=== PATIENT | female | born 1945 | race Caucasian/White ===

== ENCOUNTER → 2018-02-17 14:12 | Outpatient (CLI) | payer MEDICARE, OTHER, SELFPAY ==
[2018-02-17 17:25] LABS: HIV 1 and 2 Antibody NEGATIVE (NEGATIVE); Hep C Virus Ab w/Reflex Quant NEGATIVE s/c (NEGATIVE)
[2018-02-17 18:18] LABS: Urine N gonorrhoeae NOT DETECTED
[2018-02-17 18:58] LABS: Urine Chlamydia NOT DETECTED
[2018-02-19 13:45] LABS: Hepatitis B Core Antibody Nonreactive (Nonreactive)
[2018-02-19 14:39] LABS: HSV 2 IGG AB < 0.90 index (< 0.90)
[2018-02-19 15:09] LABS: RPR Screen Nonreactive (Nonreactive)
[2018-02-21 13:30] LABS: HSV 1 IgM Screen Negative (Negative); HSV 2 IgM Screen Negative (Negative)
== END ==
PROVIDERS: Visit Provider Obstetrics & Gynecology
DX: Z20.828 Contact with and (suspected) exposure to other viral communicable diseases (principal)
CPT/HCPCS: 36415; 86592; 86694; 86695; 86696; 86703; 86704; 86803; 87491; 87591

== ENCOUNTER → 2018-09-10 13:52 | Outpatient (CLI) | payer MEDICARE, OTHER, SELFPAY ==
--- NOTE | 2018-09-10 | DI.MRI.S_ITS ---
PROCEDURE: MR LUMBAR SPINE WO CON INDICATIONS: Other intervertebral disc degeneration, lumbar reg TECHNIQUE: Noncontrast sagittal T1 spin echo and T2 fast echo, sagittal STIR, axial T1 and T2 fast spin echo through the lumbar spine. In cases with scoliosis, additional coronal T2 fast spin echo may be performed. COMPARISON: [facility] [place], CR, XR LUMBAR SPINE WITH OLBIQUES PLUS FLEXION EXTENSION, 09/05/2018, 14:23. FINDINGS: Image quality: Excellent. Alignment and Curvature: There is trace L4-L5 anterolisthesis. Bone Marrow: Marrow is of normal overall signal. No acute vertebral body compression fractures. Spinal Cord: Conus medullaris terminates at the L1 to level. Visualized cord demonstrates normal signal and size. Paraspinous Soft Tissues: No paravertebral masses. L1-L2: Loss of disc signal. Minimal, diffuse disc bulge. No central stenosis. No neural foraminal narrowing. No neural impingement. L2-L3: Slight loss of disc signal. No central stenosis. No neural foraminal narrowing. No neural impingement. Mild bilateral facet hypertrophy. L3-L4: Loss of disc signal. Minimal, diffuse disc bulge. Moderate bilateral facet hypertrophy. Mild narrowing of the central canal. No neural foraminal narrowing. No neural impingement. L4-L5: Loss of disc signal. Minimal, diffuse disc bulge and moderate to severe facet hypertrophy. Mild ligamentum flavum hypertrophy. Mild to moderate narrowing of the central canal. Mild bilateral neural foraminal narrowing. No neural impingement. L5-S1: Loss of disc signal. Moderate bilateral facet hypertrophy. No central stenosis. No neural foraminal narrowing. No neural impingement. Bilateral S1 and S2 Tarlov cysts. IMPRESSION: 1. Grade I L4-L5 degenerative spondylolisthesis. 2. Multilevel degenerative disc disease. 3. Multilevel facet arthropathy. 4. Mild to moderate L4-L5 central canal narrowing. Mild L3-L4 central canal narrowing. 5. Mild bilateral L4-L5 neural foraminal narrowing. 6. No neural impingement. Dictated by: Neida Sandoval MD, PhD on 09/12/2018 at 11:09 Approved by: Neida Sandoval MD, PhD on 09/12/2018 at 11:13
== END ==
PROVIDERS: Family Provider Otolaryngology; PCP Family Medicine; Visit Provider Physical Medicine & Rehabilitation Pain Medicine
DX: M51.36 Other intervertebral disc degeneration, lumbar region (principal); M47.816 Spondylosis without myelopathy or radiculopathy, lumbar region; M47.817 Spondylosis without myelopathy or radiculopathy, lumbosacral region; M48.061 Spinal stenosis, lumbar region without neurogenic claudication; M43.16 Spondylolisthesis, lumbar region
CPT/HCPCS: 72148

== ENCOUNTER → 2019-01-02 15:22 | Outpatient (CLI) | payer MEDICARE, OTHER, SELFPAY ==
--- NOTE | 2019-01-02 | DI.RAD.S_ITS ---
PROCEDURE: XR CERVICAL SPINE MIN 6V INDICATIONS: NECK PAIN TECHNIQUE: 7 views of the cervical spine were acquired. COMPARISON: [facility], CR, SPINE THORACIC 2VW, 03/30/2013, 13:22. FINDINGS: Bones: No fractures or dislocations to the T1 level. No suspicious bony lesions. There is limited range of motion between flexion and extension, with preserved normal bony alignment. Severe multilevel disc degeneration, most notably at the C4-C5, C5-C6 and C6-C7 levels. Moderate multilevel mid and lower cervical spine facet joint arthropathy. Moderate multilevel mid and lower cervical spine bilateral facet joint arthropathy. Soft tissues: Prevertebral soft tissues are normal in thickness. There is rightward deviation of the trachea noted on the frontal view IMPRESSION: 1. Limited range of motion multilevel degenerative change. 2. Rightward deviation of the trachea seen on the frontal view which appears similar to prior thoracic spine series dated 03/30/13. When clinically feasible recommend 2 view chest radiograph for further assessment. Dictated by: Shankar SAMS Interpreted: Deja Galvez MD on 01/02/2019 at 17:06 Approved by: Deja Galvez M.D. on 01/02/2019 at 17:50
== END ==
PROVIDERS: PCP Family Medicine; Visit Provider Anesthesiology Pain Medicine
DX: M50.321 Other cervical disc degeneration at C4-C5 level (principal); M47.812 Spondylosis without myelopathy or radiculopathy, cervical region
CPT/HCPCS: 72052

== ENCOUNTER → 2019-01-30 15:35 | Outpatient (CLI) | payer MEDICARE, OTHER, SELFPAY ==
--- NOTE | 2019-01-30 | DI.RAD.S_ITS ---
PROCEDURE: XR THORACIC SPINE 2V INDICATIONS: TRACHEAL DEVIATION TECHNIQUE: 3 views of the thoracic spine were acquired. COMPARISON: [facility], CR, XR CERVICAL SPINE MIN 6V, 01/02/2019, 15:26. [facility], MR, C-SPINE WITHOUT CONTRAST, 11/25/2009, 12:17. [facility], CR, SPINE THORACIC 2VW, 03/30/2013, 13:22. [facility], MR, MR THORACIC SPINE WITHOUT CONTRAST, 02/28/2015, 13:24. [facility], CR, RIBS UNILATERAL WITH PA CXR, 06/24/2015, 16:51. FINDINGS: Bones: No fractures or dislocations. No suspicious bony lesions. 12 pairs of ribs are noted, and appear intact where visualized. Degenerative disc disease and facet osteoarthritis along the thoracic spine is little if any change from prior studies, and moderately severe low cervical degenerative disc disease is partially visualized. This has been previously documented. There is prominent associated kyphosis. Soft tissues: No paravertebral stripe thickening. IMPRESSION: The tracheal deviation seen on cervical spine plain film imaging 01/02/19 likely is secondary to the prominent kyphosis of the patient but may be secondary to some additional factor more anteriorly. The thoracic spine imaging visualizes the posterior structures well away from the anterior position in trachea. CT scanning may be warranted if a mass within the upper mediastinum is clinically suspected. Dictated by: Rakan Pritchett M.D. on 01/30/2019 at 16:23 Approved by: Rakan Pritchett M.D. on 01/30/2019 at 16:26
== END ==
PROVIDERS: Family Provider Otolaryngology; PCP Family Medicine; Referring Provider Physical Medicine & Rehabilitation Pain Medicine; Visit Provider Anesthesiology Pain Medicine
DX: J39.8 Other specified diseases of upper respiratory tract (principal); M51.34 Other intervertebral disc degeneration, thoracic region; M47.814 Spondylosis without myelopathy or radiculopathy, thoracic region; M50.30 Other cervical disc degeneration, unspecified cervical region; M40.209 Unspecified kyphosis, site unspecified
CPT/HCPCS: 72070

== ENCOUNTER → 2019-04-13 10:02 | Outpatient (CLI) | payer MEDICARE, OTHER, SELFPAY ==
--- NOTE | 2019-04-13 | DI.MRI.S_ITS ---
PROCEDURE: MR CERVICAL SPINE WO CON INDICATIONS: Cervicalgia TECHNIQUE: Noncontrast sagittal T1 spin echo and T2 fast spin echo, sagittal STIR, foraminal oblique sagittal T2 fast spin echo, and axial gradient echo or T2 fast spin echo through the cervical spine. COMPARISON: [facility], MR, C-SPINE WITHOUT CONTRAST, 11/25/2009, 12:17. FINDINGS: Image quality: Excellent. Alignment and Curvature: Straightening of the normal lordotic curvature. Grade 1 anterolisthesis of C4 on C5. Multilevel degenerative endplate sclerosis and spurring. Diffuse facet arthropathy. No fracture notified. Spinal Cord: Visualized spinal cord has normal size and signal. No cerebellar tonsillar herniation. Paraspinous Soft Tissues: No paravertebral masses. Prevertebral soft tissues are normal in thickness. C2-C3: No central canal narrowing. Mild bilateral foraminal stenoses, possibly slightly progressed on the left since prior study on axial images only. C3-C4: No central canal narrowing. Moderate bilateral foraminal stenoses with nerve root compression, no definite change on axial images only C4-C5: Mild central canal narrowing. Asymmetric facet arthropathy, left greater than right. Severe bilateral foraminal stenosis, left greater than right with nerve root compression on both sides. C5-C6: Mild center canal narrowing. Severe bilateral foraminal stenoses with nerve root compression. Overall, no definite interval change on axial images only. C6-C7: Mild central canal narrowing. Severe right foraminal stenosis. Moderate to severe left foraminal stenosis. No definite interval change on axial images only. C7-T1: No high-grade central canal stenosis. Mild-moderate bilateral foraminal stenoses, no definite interval change on axial images only.. IMPRESSION: Cervical spondylosis with multilevel mild central canal narrowing Numerous bilateral foraminal stenoses as detailed above. Limited comparison to prior study given differences in exam protocol. Dictated by: Panda Amaya M.D. on 04/13/2019 at 15:04 Approved by: Panda Amaya M.D. on 04/13/2019 at 15:47
--- NOTE | 2019-04-13 | DI.MRI.S_ITS ---
PROCEDURE: MR THORACIC SPINE WO CON INDICATIONS: Cervicalgia TECHNIQUE: Noncontrast sagittal T1 spine echo and T2 fast spin echo, sagittal STIR, axial T1 and T2 fast spin echo through the thoracic spine. COMPARISON: None. FINDINGS: Image quality: Excellent. Alignment and Curvature: There is mildly increased thoracic kyphosis Bone Marrow: Scattered Schmorl's nodes are present without definite adjacent marrow edema suggesting chronic age. Multilevel endplate degenerative signal changes. No acute vertebral body compression fractures. Spinal Cord: Visualized spinal cord is normal in size and signal. Paraspinous Soft Tissues: No paravertebral masses. Enlargement of the descending thoracic aorta measuring 3.6 x 3.7 cm. Miscellaneous: On axial images, central canal and foramina appear widely patent at all scanned levels. IMPRESSION: Increased thoracic kyphosis. No fracture identified. No definite canal or foraminal stenosis Scattered chronic appearing multilevel Schmorl's nodes. Diffuse mild spondylosis Aneurysmal ectasia of the descending thoracic aorta. This could be better characterized with with dedicated CT chest. Dictated by: Panda Amaya M.D. on 04/13/2019 at 15:47 Approved by: Panda Amaya M.D. on 04/13/2019 at 15:53
== END ==
PROVIDERS: Family Provider Otolaryngology; PCP Family Medicine; Referring Provider Acupuncturist; Visit Provider Acupuncturist
DX: M54.2 Cervicalgia (principal); M47.812 Spondylosis without myelopathy or radiculopathy, cervical region; M48.02 Spinal stenosis, cervical region
CPT/HCPCS: 72141; 72146

== ENCOUNTER → 2020-05-29 15:44 | Outpatient (CLI) | payer MEDICARE, OTHER, SELFPAY ==
--- NOTE | 2020-05-29 15:46 | DI.RAD.S_ITS ---
PROCEDURE: XR CERVICAL SPINE 4V OR 5V INDICATIONS: cervical radiculopathy TECHNIQUE: 5 views of the cervical spine acquired. COMPARISON: [facility], CR, XR CERVICAL SPINE MIN 6V, 01/02/2019, 15:26. FINDINGS: Bones: No fractures or dislocations to the T1 level. Oblique images demonstrate no bony foraminal stenoses. Degenerative disc disease is mild at C2-3 and C3-4 and moderate at C4-5 where anterolisthesis grade 1 is present. At C5-6 and C6-7 the degenerative disc disease is moderately severe. Oblique view show midcervical spine osteophyte formation mildly improved narrowing the neural foramen. Soft tissues: No prevertebral soft tissue swelling. IMPRESSION: No definite worsening of the degenerative disc disease and facet osteoarthritis along the cervical spine with reference to the comparison study. No trauma found. Stable finding of mild grade 1 anterolisthesis of C4 on C5 presumably related to ligamentous laxity previously present. Dictated by: Rakan Pritchett M.D. on 05/30/2020 at 8:09 Approved by: Rakan Pritchett M.D. on 05/30/2020 at 8:12
== END ==
PROVIDERS: Family Provider Otolaryngology; PCP Family Medicine; Referring Provider Physical Medicine & Rehabilitation; Visit Provider Physical Medicine & Rehabilitation
DX: M47.22 Other spondylosis with radiculopathy, cervical region (principal); M50.11 Cervical disc disorder with radiculopathy, high cervical region; M43.12 Spondylolisthesis, cervical region
CPT/HCPCS: 72050

== ENCOUNTER → 2020-10-28 08:31 | Outpatient (CLI) | payer MEDICARE, OTHER, SELFPAY ==
[2020-10-28 14:15] LABS: COVID19 -Nasal RAPID Negative (Negative)
== END ==
PROVIDERS: Family Provider Otolaryngology; PCP Family Medicine; Visit Provider Physical Medicine & Rehabilitation
DX: Z20.822 Contact with and (suspected) exposure to COVID-19 (principal)
CPT/HCPCS: 87635; C9803

== ENCOUNTER 2020-10-29 13:41 | Outpatient (CLI) | payer MEDICARE, OTHER, SELFPAY ==
[2020-10-29] VITALS (8 sets, daily range): BP systolic 136–165; BP diastolic 78–87; PULSE 76–83; RESP 12–20; TEMP 37.1; O2SAT 97–99
--- NOTE | 2020-10-29 13:42 | DI.RAD.S_ITS ---
PROCEDURE: PAIN L/SI FACET INJ/BLK 1STL INDICATIONS: SPONDYLOSIS COMPARISON: None. FINDINGS: Fluoroscopic spot filming was performed to verify placement of spinal needles at the L4-5 and L5-S1 level(s), as labeled on the films. Appropriate location(s) of the needle tip(s) was confirmed by injection of iodinated contrast. IMPRESSION: Fluoro guidance was provided intraoperatively for right L4-5 and L5-S1 facet joint injection. Dictated by: Александр Amador M.D. on 10/29/2020 at 17:03 Approved by: Александр Amador M.D. on 10/29/2020 at 17:05
[2020-10-29] MEDS: MIDAZOLAM 5 MG/5 ML VIAL IV (14:56)
[2020-10-29] MEDS: BUPIVACAINE 0.5% (PF) VIAL 2 ML INJ (15:13)
[2020-10-29] MEDS: IOPAMIDOL 15 ML VIAL 3 ML INJ (15:13)
[2020-10-29] MEDS: BETAMETHASONE 30 MG/5 ML MDV 6 MG INJ (15:13)
--- NOTE | 2020-10-29 15:14 | P.PCN_ITS ---
Date/Time/Diagnoses Date of procedure: 10/29/20 Time of procedure: 15:14 Pre-procedure diagnosis: 1. FACET ARTHROPATHY, 2. AXIAL LBP, 3. MULTILEVEL DDD Post-procedure diagnosis: same Procedure Notes Procedure: 1. FLUOROSCOPICALLY GUIDED CONTRAST CONTROLLED FACET JOINT INJECTIONS RIGHT L4/5, L5/S1 Indications: Joselin is referred by Dr. Laurent for treatment of Axial LBP Physician: Joce Roman Total Fluoroscopy time (seconds): 4 Total sedation minutes: 10 Complications: none Procedure in detail & Post-procedure care: FINDINGS Multilevel Facet Arthropathy with Clinically significant axial LBP DESCRIPTION OF PROCEDURE Fluoroscopically guided, contrast-controlled right L4/5, L5/S1 facet joint injections. Following review of allergy and review of potential side effects and complications, including, but not necessarily limited to, infection, allergic reaction, local tissue breakdown, stroke, temporary or permanent nerve injury, paralysis, and possible , the patient indicated that the patient understood and agreed to proceed. An informed consent document was signed by the patient, witnessed by a nurse, and placed in the patient's chart. Additionally, other treatment options including medications, modalities, and physical therapy were reviewed with the patient. After review of previous anaesthesic history and IV conscious sedation the patient was deemed safe to proceed with today?s procedure with IV conscious sedation as ASA class II designation. Safety time-out was performed to confirm patient ID, procedure to be performed and site of procedure. IV sedation was accomplished with a combination of 2mg of Versed was administered by the RN after DO order, titrated to patient comfort during the course of the procedure while the patient remained responsive to all verbal commands. In the prone position, following sterile prep and drape of the lumbar region, the posterior aspect of the right L4/5, L5/S1 facet joints were identified fluoroscopically. The skin was anesthetized via a 25-gauge 1.5-inch needle with 1% lidocaine solution into the corresponding facet joints. At this point, a 22- gauge 3.5-inch spinal needle was atraumatically introduced and advanced under fluoroscopic guidance into the corresponding facet joints. Following negative aspiration, injections of approximately 0.2-cc of Isovue 200 confirmed interarticular placement without vascular uptake. Radiological data, including multiple fluoroscopic views of the lumbosacral spine, reveal a spinal needle at the right L4/5, L5/S1 facet joints. Subsequent views show flow of contrast material both superiorly and inferiorly within the joint space without vascular or intrathecal uptake. At this point, a total of 0.5cc including a mixture of 0.25cc Marcaine and 0. 25cc betamethasone was injected without complication into each of the corresponding facet joints. The procedure tolerated the procedure well without signs or symptoms of complications prior to transfer to the recovery area continued monitoring without incident. The patient was then transferred to the recovery area where they were observed for an appropriate period of time after the injection. The patient reported a VAS score of 7 prior to the procedure and a post-procedure VAS of 0. POST OP INSTRUCTIONS The patient was provided a Pain Log to continue to record their response to the target-specific procedure prior to follow-up visit with their referring physician. Additionally, specific post-injection care instructions and a contact number to our office were provided if concerns arise regarding possible complications associated with the procedure are suspected.
== END 2020-10-29 15:37 | disposition home or self-care (01) ==
PROVIDERS: Family Provider Otolaryngology; PCP Family Medicine; Referring Provider Physical Medicine & Rehabilitation; Visit Provider Physical Medicine & Rehabilitation
DX: M47.816 Spondylosis without myelopathy or radiculopathy, lumbar region (principal); M47.817 Spondylosis without myelopathy or radiculopathy, lumbosacral region; M51.36 Other intervertebral disc degeneration, lumbar region; M51.37 Other intervertebral disc degeneration, lumbosacral region; M54.5 Low back pain
CPT/HCPCS: 64493; 64494; 99152; J0702; J1100; J2250; J3010

== ENCOUNTER → 2021-09-18 11:55 | Outpatient (CLI) | payer MEDICARE, OTHER, SELFPAY ==
--- NOTE | 2021-09-18 | DI.ECHO.S_ITS ---
[facility]---------+ [facility] +---------+ : : [address] : [place] : : : : [id number] : : : : Phone: [phone] Echocardiogram Report + + :Name: XI ARAYA Study Date: 09/18/2021 Height: 67 in : :[facility] ReadingLocation: Weight: 200 lb : : Gender: Female BSA: 2.0 m2 : :: 1945 Age: 75 yrs BP: 177/106 mmHg: :Reason For Study: Dyspnea : :Ordering Physician: MARTY, : :SOTO Performed By: Danny Coello : :Referring: SOTO CARREON : + + Interpretation Summary 1) Normal left ventricular size with moderately to severely reduced systolic function (EF 30-35%). 2) Normal right ventricular size and function. 3) No significant valvular abnormalities. 4) Significant hypertension present during the study (BP 177/106mmHg). 5) No prior Echo available for comparison. Procedure: A two-dimensional transthoracic echocardiogram with color flow and Doppler was performed. The study quality was technically difficult. There is no prior echocardiogram noted for this patient. Left Ventricle: The left ventricle is normal in size. There is mild concentric left ventricular hypertrophy. Left ventricular systolic function is moderately reduced. The ejection fraction is estimated to be 30-35%. There is moderate to severe global hypokinesis of the left ventricle. Diastolic parameters suggest a relaxation abnormality of the left ventricle, consistent with probable normal filling pressures. Right Ventricle: The right ventricle is normal in size and function. Atria: Both atria are normal in size. The interatrial septum grossly appears intact with no obvious evidence for an atrial septal defect. Mitral Valve: There is mild mitral annular calcification. There is trace mitral regurgitation. Aortic Valve: The aortic valve is normal in structure and function. There is no aortic valve stenosis. There is mild aortic regurgitation. Tricuspid Valve: The tricuspid valve is normal in structure and function. No tricuspid regurgitation. Pulmonary artery pressures cannot be estimated because of the lack of a measurable TR jet velocity. Pulmonic Valve: The pulmonic valve is not well visualized. Great Vessels: The aortic root is not well visualized but is probably normal size. The ascending aorta could not be visualized. The IVC is dilated (diameter is greater than 2.1 cm) yet it collapses greater than 50% with a sniff. This suggests a right atrial pressure of 8 mm Hg. Pericardium/ Pleura There is no pericardial effusion. There is no pleural effusion. MMode/2D Measurements & Calculations LVIDd: 4.4 cm LVOT diam: 2.0 cm LVIDs: 3.7 cm FS: 15.9 % IVSd: 1.2 cm LVPWd: 1.3 cm LV giraldo. diameter/BSA (cm/m^2): 2.2 LV sys. diameter/BSA (cm/m^2): 1.8 LA dimension: 3.6 cm RA long axis: 4.8 cm LA A2 area: 20.1 cm2 IVC diam: 2.3 cm LA A4 area: 20.9 cm2 LA length (vol): 5.7 cm LA vol: 62.9 ml LA vol index: 31.1 ml/m2 LVLs ap4: 7.6 cm LVLd ap2: 8.4 cm LVLs ap2: 7.5 cm TAPSE_phl: 1.8 cm Doppler Measurements & Calculations Ao V2 max: 119.0 cm/sec LVOT Max Kedar: 79.0 cm/sec Ao V2 mean: 81.6 cm/sec LV V1 max P.5 mmHg Ao max P.0 mmHg LV V1 VTI: 17.4 cm Ao mean P.0 mmHg SOLA(I,D): 2.4 cm2 Ao V2 VTI: 22.6 cm SOLA(V,D): 2.1 cm2 sev ratio: 0.77 SOLA indexed to BSA (cm^2/m^2): 1.2 MV E max kedar: 42.4 cm/sec SV(LVOT): 54.7 ml MV A max kedar: 90.0 cm/sec MV E/A: 0.47 Med Peak E' Kedar: 2.9 cm/sec E/E' med: 14.6 Lat Peak E' Kedar: 3.3 cm/sec E/E' lat: 12.9 E/e' average: 13.8 MV dec time: 0.47 sec AV VR_phl: 0.66 MV P1/2t-pr_phl: 139.0 msec SOLA(VTI)/BSA_phl: 1.2 Reading Physician:02:10 PM
== END ==
PROVIDERS: Family Provider Otolaryngology; PCP Family Medicine; Referring Provider Internal Medicine Cardiovascular Disease; Visit Provider Internal Medicine Cardiovascular Disease
DX: R06.00 Dyspnea, unspecified (principal); I35.1 Nonrheumatic aortic (valve) insufficiency
CPT/HCPCS: 93306

== ENCOUNTER → 2021-11-04 14:33 | Outpatient (CLI) | payer MEDICARE, OTHER, SELFPAY ==
[2021-11-04 16:58] LABS: BUN Creatinine Ratio 17.6 (6-22); Blood Urea Nitrogen 16 mg/dL (7-17); Calcium 8.9 mg/dL (8.4-10.2); Carbon Dioxide 31 mmol/L (22-32); Chloride 100 mmol/L (98-107); Estimated Glomerular Filt Rate > 60 mL/min (>60); Glucose 90 mg/dL (80-110); HEMOLYSIS < 15 (0-50); Potassium 3.8 mmol/L (3.4-5.1); Sodium 138 mmol/L (137-145)
== END ==
PROVIDERS: Family Provider Otolaryngology; PCP Physician Assistant; Referring Provider Internal Medicine Cardiovascular Disease; Visit Provider Internal Medicine Cardiovascular Disease
DX: I10 Essential (primary) hypertension (principal)
CPT/HCPCS: 36415; 80048

== ENCOUNTER → 2022-03-25 14:37 | Outpatient (CLI) | payer MEDICARE, OTHER, SELFPAY ==
[2022-03-25 15:34] LABS: Add Manual Diff / Slide Review NO; Basophils Absolute Auto 0 /uL (0-100); Basophils Percent Auto 0.6 % (0-2); Eosinophils Absolute Auto 100 /uL (0-450); Eosinophils Percent Auto 1.8 % (2-4); Hematocrit 39.8 % (36-46); Hemoglobin 13.6 g/dL (12.0-16.0); Lymphocytes Absolute Auto 1800 /uL (1100-4500); Lymphocytes Percent Auto 22.4 % (25-40); Mean Corpuscular HGB Conc 34.2 % (30-36); Mean Corpuscular Hemoglobin 30.8 PG (26-34); Mean Corpuscular Volume 90.1 fL (80-100); Monocytes Absolute Auto 700 /uL (0-900); Monocytes Percent Auto 8.6 % (3-14); Neutrophils Absolute Auto 5300 /uL (1500-7000); Neutrophils Percent Auto 66.6 % (50-75); Platelet Count 232 X10^3/uL (150-400); Red Blood Cell Count 4.41 X10^6/uL (4.0-5.2); Red Cell Distribution Width 13.5 % (11.6-14.8)
[2022-03-25 15:56] LABS: BUN Creatinine Ratio 16.8 (6-22); Blood Urea Nitrogen 20 mg/dL (7-17); Calcium 9.2 mg/dL (8.4-10.2); Carbon Dioxide 27 mmol/L (22-32); Chloride 100 mmol/L (98-107); Estimated Glomerular Filt Rate 47 mL/min (>60); Glucose 152 mg/dL (80-110); HEMOLYSIS < 15 (0-50); Potassium 4.6 mmol/L (3.4-5.1); Sodium 139 mmol/L (137-145)
== END ==
PROVIDERS: Family Provider Otolaryngology; PCP Physician Assistant; Referring Provider Internal Medicine Cardiovascular Disease; Visit Provider Internal Medicine Cardiovascular Disease
DX: I10 Essential (primary) hypertension (principal)
CPT/HCPCS: 36415; 80048; 85025

== ENCOUNTER → 2022-07-24 08:39 | Outpatient (CLI) | payer MEDICARE, OTHER, SELFPAY ==
--- NOTE | 2022-07-24 08:40 | DI.US.S_ITS ---
PROCEDURE: US PELVIC COMPLETE INDICATIONS: POSTMENOPAUSAL BLEEDING TECHNIQUE: Real-time scanning was performed of the pelvic organs, with image documentation. Additional endovaginal scanning was necessary due to incomplete visualization of the adnexal and endometrial structures by transabdominal scanning. COMPARISON: None. FINDINGS: Uterus: Uterus is anteverted and normal in size at 5.4 x 3.8 x 2.4 cm. The myometrium is heterogeneous. The endometrium measures 4 mm combined thickness. Right anterior intramural fibroid measuring at 0.7 x 0.6 x 0.5 cm. Small nabothian cysts. Ovaries: The right ovary measures 2.4 x 2.2 x 1.3 cm, with a calculated ovarian volume of 4 cc. The left ovary measures 2.4 x 1.8 x 1.4 cm, with a calculated ovarian volume of 3 cc. The ovaries have a normal sonographic appearance. Less than 12 follicles can be seen in each ovary. No adnexal masses are seen. Other: No pathologic free abdominal or pelvic fluid. IMPRESSION: 1. Endometrium measures 4 mm in this patient with postmenopausal bleeding. Endometrial biopsy should be considered. 2. Small subcentimeter intramural fibroid. 3. No significant ovarian cysts. We strive to produce accurate, complete, and clear reports of imaging services. To assist us in improving patient care, this report was composed using standard report templates and voice recognition software. Therefore, it may contain abnormal punctuation, insertions and/or omissions. Occasional wrong-word or sound-alike substitutions may occur. Though we review the report and make efforts to correct it, we do recommend that the report be read carefully in proper context to recognize any text inaccuracies. Dictated by: Sal Coreas M.D. on 07/24/2022 at 9:57 Approved by: Sal Coreas M.D. on 07/24/2022 at 10:00
== END ==
PROVIDERS: Family Provider Otolaryngology; PCP Physician Assistant; Referring Provider Obstetrics & Gynecology; Visit Provider Obstetrics & Gynecology
DX: N95.0 Postmenopausal bleeding (principal)
CPT/HCPCS: 76830; 76856

== ENCOUNTER → 2023-07-28 08:44 | Outpatient (CLI) | payer MEDICARE, OTHER, SELFPAY ==
--- NOTE | 2023-07-28 08:48 | DI.ECHO.S_ITS ---
[facility]---------+ [facility] : : [address] : : [place] : : [id number] : : Phone: [phone] Echocardiogram Report + + :Name: XI ARAYA Study Date: 07/28/2023 Height: 67.5 in: :[facility] ReadingLocation: Weight: 212 lb : : Gender: Female BSA: 2.1 m2 : :: 1945 Age: 77 yrs BP: 150/94 mmHg: :Reason For Study: CARDIOMYOPATHY : :Ordering Physician: MARTY, : :SOTO Performed By: Ryanne Kaur : :Referring: SOTO CARREON : + + Interpretation Summary 1) Normal left ventricular size with moderately reduced systolic function (EF 35-40%). 2) Normal right ventricular size and function. 3) There is mild to moderate aortic regurgitation. 4) Compared to the Echo done 09/18/2021, LVEF has improved slightly from 30-35% to 35-40% on this study. Procedure: A two-dimensional transthoracic echocardiogram with color flow and Doppler was performed. The study quality was technically adequate. Comparison is made with the echocardiogram of 09/18/2021. The patient was in atrial fibrillation with heart rates between 74-81 bpm during the exam. Left Ventricle: Proximal septal thickening is noted. The left ventricle is normal in size. The ejection fraction is estimated to be 35-40%. There is a significant dyssynchronous contraction pattern, consistent with a conduction abnormality. There is moderate global hypokinesis of the left ventricle. Diastolic parameters suggest a relaxation abnormality of the left ventricle, consistent with probable normal filling pressures. Right Ventricle: The right ventricle is normal in size and function. Atria: The left atrium is moderately dilated. Right atrial size is normal. There is no Doppler evidence for an interatrial shunt. Mitral Valve: There is mild to moderate mitral annular calcification. The mitral valve leaflets appear mildly thickened, but open well. There is trace mitral regurgitation. Aortic Valve: The aortic valve is trileaflet. The aortic valve opens well. There is no aortic valve stenosis. There is mild to moderate aortic regurgitation. Tricuspid Valve: The tricuspid valve is normal in structure and function. There is trace tricuspid regurgitation. Pulmonary artery pressures cannot be estimated because of the lack of a measurable TR jet velocity. Pulmonic Valve: The pulmonic valve leaflets are thin and pliable; valve motion is normal. There is no pulmonic valvular regurgitation. Great Vessels: The aortic root is normal size. The IVC is of normal diameter and collapses greater than 50% with a sniff. This suggests a low right atrial pressure of 3 mm Hg. Pericardium/ Pleura There is no pericardial effusion. There is no pleural effusion. MMode/2D Measurements & Calculations LVIDd: 4.6 cm LVOT diam: 2.2 cm LVIDs: 3.6 cm Ao root diam: 3.7 cm FS: 20.8 % asc Aorta Diam: 3.8 cm IVSd: 1.3 cm Ao Arch Diam (Prox Trans): 3.0 cm LVPWd: 0.91 cm LV giraldo. diameter/BSA (cm/m^2): 2.2 LV sys. diameter/BSA (cm/m^2): 1.7 LA A2 area: 30.5 cm2 RA long axis: 4.8 cm LA A4 area: 22.3 cm2 RA area: 18.1 cm2 LA length (vol): 5.9 cm RA vol: 57.9 ml LA vol: 97.7 ml RA : 27.7 ml/m2 LA vol index: 46.9 ml/m2 IVC diam: 0.91 cm RVD1 (basal): 3.2 cm RVD2 (mid): 2.4 cm TAPSE: 1.6 cm Doppler Measurements & Calculations Ao V2 max: 147.5 cm/sec LVOT Max Kedar: 108.2 cm/sec Ao V2 mean: 105.8 cm/sec LV V1 max P.7 mmHg Ao max P.7 mmHg LV V1 VTI: 21.4 cm Ao mean P.0 mmHg SOLA(I,D): 2.7 cm2 Ao V2 VTI: 30.2 cm SOLA(V,D): 2.8 cm2 sev ratio: 0.71 SOLA indexed to BSA (cm^2/m^2): 1.3 MV E max kedar: 112.3 cm/sec PA V2 max: 91.8 cm/sec MV A max kedar: 1.8 cm/sec PA V2 mean: 60.3 cm/sec MV E/A: 63.5 PA mean P.7 mmHg Med Peak E' Kedar: 7.9 cm/sec PA pr(Accel): 46.5 mmHg E/E' med: 14.1 Lat Peak E' Kedar: 10.0 cm/sec E/E' lat: 11.2 E/e' average: 12.7 MV dec time: 0.11 sec SV(LVOT): 82.4 ml Reading Physician:10:21 AM
== END ==
PROVIDERS: Family Provider Otolaryngology; PCP Physician Assistant; Referring Provider Internal Medicine Cardiovascular Disease; Visit Provider Internal Medicine Cardiovascular Disease
DX: I34.81 Nonrheumatic mitral (valve) annulus calcification (principal); I35.1 Nonrheumatic aortic (valve) insufficiency; I42.9 Cardiomyopathy, unspecified; I44.7 Left bundle-branch block, unspecified
CPT/HCPCS: 93306

== ENCOUNTER → 2023-10-14 13:29 | Outpatient (CLI) | payer MEDICARE, OTHER, SELFPAY | PROVIDERS: Family Provider Otolaryngology; PCP Physician Assistant; Referring Provider Obstetrics & Gynecology; Visit Provider Obstetrics & Gynecology | DX: L29.2 Pruritus vulvae (principal) | CPT/HCPCS: 87480; 87510; 87660 ==

== ENCOUNTER → 2024-03-16 13:13 | Outpatient (CLI) | payer MEDICARE, OTHER, SELFPAY ==
--- NOTE | 2024-03-16 13:17 | DI.ECHO.S_ITS ---
[facility]+ [facility] : : [address] : : [place] : : [id number] : : Phone: [phone] Echocardiogram Report + + :Name: XI ARAYA Study Date: 03/16/2024 Height: 67 in : :[facility] ReadingLocation: Weight: 200 lb : : Gender: Female BSA: 2.0 m2 : :: 1945 Age: 78 yrs BP: 159/102 mmHg: :Reason For Study: CARDIOMYOPATHY : :Ordering Physician: MARTY, : :SOTO Performed By: Ryanne Kaur : :Referring: OSTO CARREON : + + Interpretation Summary 1) Normal left ventricular size with moderately reduced systolic function (EF 35-40%). 2) Normal right ventricular size and function. 3) There is mild aortic regurgitation. 4) Compared to the Echo done 07/28/2023, no significant change. Procedure: A two-dimensional transthoracic echocardiogram with color flow and Doppler was performed. The study quality was technically adequate. Comparison is made with the echocardiogram of 07/28/2023. The patient was in sinus rhythm with heart rates between 75-85 bpm during the exam. Left Ventricle: The left ventricle is normal in size. Proximal septal thickening is noted. The ejection fraction is estimated to be 35-40%. There is moderate global hypokinesis of the left ventricle. Diastolic parameters suggest a relaxation abnormality of the left ventricle, consistent with probable normal filling pressures. Right Ventricle: The right ventricle is normal in size and function. Atria: The left atrium is mildly dilated. Right atrial size is normal. There is no Doppler evidence for an interatrial shunt. Mitral Valve: The mitral valve leaflets appear mildly thickened, but open well. The mitral valve leaflets appear to open well. There is mild to moderate mitral annular calcification. There is no mitral regurgitation noted. Aortic Valve: The aortic valve is trileaflet. The aortic valve opens well. There is no aortic valve stenosis. There is mild aortic regurgitation. Tricuspid Valve: The tricuspid valve is normal. There is trace tricuspid regurgitation. Pulmonary artery pressures cannot be estimated because of the lack of a measurable TR jet velocity. Pulmonic Valve: The pulmonic valve is not well visualized. There is no pulmonic valvular regurgitation. Great Vessels: The aortic root is normal size. The ascending aorta is at the upper limits of normal in size. The IVC is of normal diameter and collapses greater than 50% with a sniff. This suggests a low right atrial pressure of 3 mm Hg. Pericardium/ Pleura There is no pericardial effusion. There is no pleural effusion. MMode/2D Measurements & Calculations LVIDd: 4.0 cm LVOT diam: 2.2 cm LVIDs: 3.3 cm Ao root diam: 3.5 cm FS: 19.1 % asc Aorta Diam: 3.8 cm IVSd: 0.93 cm Ao Arch Diam (Prox Trans): 3.0 cm LVPWd: 1.1 cm LV giraldo. diameter/BSA (cm/m^2): 2.0 LV sys. diameter/BSA (cm/m^2): 1.6 LA A2 area: 24.7 cm2 RA long axis: 4.8 cm LA A4 area: 21.6 cm2 RA area: 17.0 cm2 LA length (vol): 5.8 cm RA vol: 50.4 ml LA vol: 78.2 ml RA : 24.9 ml/m2 LA vol index: 38.7 ml/m2 IVC diam: 1.4 cm RVD1 (basal): 3.4 cm RVD2 (mid): 2.7 cm TAPSE: 2.2 cm Doppler Measurements & Calculations Ao V2 max: 137.4 cm/sec LVOT Max Kedar: 94.3 cm/sec Ao V2 mean: 100.7 cm/sec LV V1 max P.6 mmHg Ao max P.5 mmHg LV V1 VTI: 18.2 cm Ao mean P.4 mmHg SOLA(I,D): 2.6 cm2 Ao V2 VTI: 25.7 cm SOLA(V,D): 2.5 cm2 sev ratio: 0.71 SOLA indexed to BSA (cm^2/m^2): 1.3 MV E max kedar: 110.4 cm/sec PA V2 max: 94.0 cm/sec MV A max kedar: 1.5 cm/sec PA V2 mean: 60.8 cm/sec MV E/A: 74.2 PA mean P.7 mmHg Med Peak E' Kedar: 10.3 cm/sec PA pr(Accel): 25.9 mmHg E/E' med: 10.8 Lat Peak E' Kedar: 11.7 cm/sec E/E' lat: 9.4 E/e' average: 10.1 MV dec time: 0.16 sec SV(LVOT): 66.8 ml Reading Physician:09:22 AM
[2024-03-16 13:43] LABS: Hematocrit 40.6 % (36-46); Hemoglobin 13.6 g/dL (12.0-16.0); Mean Corpuscular HGB Conc 33.5 % (30-36); Mean Corpuscular Hemoglobin 30.6 PG (26-34); Mean Corpuscular Volume 91.3 fL (80-100); Platelet Count 239 X10^3/uL (150-400); Red Blood Cell Count 4.44 X10^6/uL (4.0-5.2); Red Cell Distribution Width 13.4 % (11.6-14.8); White Blood Cell Count 8.5 X10^3/uL (4.5-11.0)
[2024-03-16 14:09] LABS: BUN Creatinine Ratio 16.8 (6-22); Blood Urea Nitrogen 17 mg/dL (7-17); Calcium 9.6 mg/dL (8.4-10.2); Carbon Dioxide 30 mmol/L (22-32); Chloride 101 mmol/L (98-107); Estimated Glomerular Filt Rate 57 mL/min (>60); Glucose 155 mg/dL (80-110); HEMOLYSIS < 15 (0-50); Potassium 3.7 mmol/L (3.4-5.1); Sodium 139 mmol/L (137-145)
== END ==
PROVIDERS: Family Provider Otolaryngology; PCP Physician Assistant; Referring Provider Internal Medicine Cardiovascular Disease; Visit Provider Internal Medicine Cardiovascular Disease
DX: I34.81 Nonrheumatic mitral (valve) annulus calcification (principal); I35.1 Nonrheumatic aortic (valve) insufficiency; I42.9 Cardiomyopathy, unspecified; I44.7 Left bundle-branch block, unspecified; I10 Essential (primary) hypertension
CPT/HCPCS: 36415; 80048; 85027; 93306